=== PATIENT | male | born 1940 | race Caucasian/White ===

== ENCOUNTER → 2022-04-25 | Outpatient (CLI) | payer OTHER ==
[~2022-04-25] MED LIST: METTREX2.5 PO; Synthroid150 MCG
[2022-04-27 00:03] LABS: Microalbumin, Urine Quant. 19.2 mg/L (0.000-20.000)
[2022-04-27 01:54] LABS: Protein, Urine Quantitative 13.3 mg/dL (0.0-11.9)
== END | disposition home or self-care (01) ==
LOC: LAB SHORT 07:16 → LAB 07:16 → LAB SHORT 04-26 07:18
PROVIDERS: Internal Medicine Nephrology
DX: N18.30 Chronic kidney disease, stage 3 unspecified (principal); D63.1 Anemia in chronic kidney disease; R76.9 Abnormal immunological finding in serum, unspecified; R94.5 Abnormal results of liver function studies; R94.6 Abnormal results of thyroid function studies; N25.81 Secondary hyperparathyroidism of renal origin; E55.9 Vitamin D deficiency, unspecified; E78.00 Pure hypercholesterolemia, unspecified
CPT/HCPCS: 82043; 84156